=== PATIENT | male | born 1965 | race African-American/Black ===

== ENCOUNTER 2022-06-15 16:57 | Emergency (ER) | payer OTHER ==
--- NOTE | 2022-06-15 16:59 | ED ---
General Adult HPI <Alejandra Mancia - Last Filed: 06/15/22 16:59> <Kavita Lopez - Last Filed: 06/15/22 23:38> - General Stated complaint: High blood pressure Time Seen by Provider: 06/15/22 16:59 - History of Present Illness Initial comments: 56-year-old -[place] male presents to the emergency department via EMS with a chief complaint of hypertension. (Alejandra Mancia) Patient is a 56-year-old male presenting for evaluation of hypertension. Patient is currently at [facility], he was noted to have elevated blood pressure even after taking his antihypertensives today. Patient denies any ches t pain, difficulty breathing, headache, vision or hearing changes, abdominal pain, nausea, vomiting, numbness, tingling, weakness, lower extremity swelling. Patient does admit to some URI-like symptoms. (Kavita Lopez) - Related Data Home Medications Medication Instructions Recorded Confirmed Calcium, Magnesium, Zinc, With D3 1 tab PO DAILY 06/15/22 06/15/22 Metoprolol Tartrate [Lopressor] 100 mg PO DAILY 06/15/22 06/15/22 Nicotine 7Mg/24Hr Patch [Habitrol] 1 patch TRANSDERM DAILY 06/15/22 06/15/22 Thiamine [Vitamin B-1] 100 mg PO DAILY 06/15/22 06/15/22 cloNIDine HCL [Catapres] 0.1 - 0.3 mg PO Q4H PRN 06/15/22 06/15/22 hydroCHLOROthiazide [Hydrodiuril] 25 mg PO DAILY 06/15/22 06/15/22 lisinopriL 40 mg PO DAILY 06/15/22 06/15/22 Allergies Allergy/AdvReac Type Severity Reaction Status Date / Time No Known Allergies Allergy Verified 06/15/22 21:01 Review of Systems ROS Other: All systems not noted in ROS Statement are negative. <Alejandra Mancia - Last Filed: 06/15/22 16:59> ROS Other: All systems not noted in ROS Statement are negative. <Kavita Lopez - Last Filed: 06/15/22 23:38> ROS Statement: Those systems with pertinent positive or pertinent negative responses have been documented in the HPI. General Exam <Alejandra Mancia - Last Filed: 06/15/22 16:59> Limitations: no limitations General appearance: alert, in no apparent distress Head exam: Present: atraumatic, normocephalic, normal inspection Eye exam: Present: normal appearance, EOMI. Absent: periorbital swelling Neck exam: Present: normal inspection, full ROM Respiratory exam: Present: normal lung sounds bilaterally. Absent: respiratory distress, wheezes, rales, rhonchi, stridor Cardiovascular Exam: Present: regular rate, normal rhythm, normal heart sounds. Absent: systolic murmur, diastolic murmur, rubs, gallop, clicks Neurological exam: Present: alert, oriented X3, CN II-XII intact Psychiatric exam: Present: normal affect, normal mood Skin exam: Present: warm, dry, intact, normal color. Absent: rash <Kavita Lopez - Last Filed: 06/15/22 23:38> - General Exam Comments Initial Comments: Visual Physical Exam Vital signs reviewed General: Well-appearing, nontoxic, no acute distress. Head: Normocephalic, atraumatic Eyes: PERRLA, EOMI ENT: Airway patent Chest: Nonlabored breathing Skin: No visual rash, normal skin tone Neuro: Alert and oriented 3 Musculoskeletal: No gross abnormalities (Alejandra Mancia) Course Vital Signs 06/15/22 06/15/22 06/15/22 17:08 20:00 20:10 Temperature 98.5 F Pulse Rate 71 68 80 Respiratory 18 16 16 Rate Blood Pressure 179/110 194/99 157/81 O2 Sat by Pulse 99 98 99 Oximetry 06/15/22 21:21 Temperature 98.1 F Pulse Rate 79 Respiratory 16 Rate Blood Pressure 152/90 O2 Sat by Pulse 98 Oximetry EKG Findings - EKG Comments: EKG Findings:: Sinus rhythm ventricular rate 68. DC interval 184. QRS 82. QT 379. QTC 396. Left ventricular hypertrophy noted. <Kavita Lopez - Last Filed: 06/15/22 23:38> Medical Decision Making - Lab Data Result diagrams: 06/15/22 18:24 06/15/22 18:24 <Kavita Lopez - Last Filed: 06/15/22 23:38> - Medical Decision Making Was pt. sent in by a medical professional or institution (, PA, [employer], urgent care, hospital, or custodial...) When possible be specific @ -No Did you speak to anyone other than the patient for history (EMS, parent, family, police, friend...)? What history was obtained from this source @ -No Did you review nursing and triage notes (agree or disagree)? Why? @ -I reviewed and agree with nursing and triage notes Were old charts reviewed (outside hosp., previous admission, EMS record, old EKG, old radiological studies, urgent care reports/EKG's, custodial records)? Report findings @ -No old charts were reviewed Differential Diagnosis (chest pain, altered mental status, abdominal pain women, abdominal pain men, vaginal bleeding, weakness, fever, dyspnea, syncope, headache, dizziness, GI bleed, back pain, seizure, CVA, palpatations, mental health, musculoskeletal)? @ -not applicable EKG interpreted by me (3pts min.). @ -As above X-rays interpreted by me (1pt min.). @ -Chest x-ray shows no acute process CT interpreted by me (1pt min.). @ -None done U/S interpreted by me (1pt. min.). @ -None done What testing was considered but not performed or refused? (CT, X-rays, U/S, labs)? Why? @ -None What meds were considered but not given or refused? Why? @ -None Did you discuss the management of the patient with other professionals (professionals i.e. , PA, [employer], lab, RT, psych nurse, social service worker, salvage winder and inspector, teacher, code enforcement officer, disease case manager)? Give summary @ -No Was smoking cessation discussed for >3mins.? @ -No Was critical care preformed (if so, how long)? @ -No Were there social determinants of health that impacted care today? How? (Homelessness, low income, unemployed, alcoholism, drug addiction, trans portation, low edu. Level, literacy, decrease access to med. care, alf, rehab)? @ -No Was there de-escalation of care discussed even if they declined (Discuss DNR or withdrawal of care, Hospice)? DNR status @ -No What co-morbidities impacted this encounter? (DM, HTN, Smoking, COPD, CAD, Cancer, CVA, ARF, Chemo, Hep., AIDS, mental health diagnosis, sleep apnea, morbid obesity)? @ -None Was patient admitted / discharged? Hospital course, mention meds given and route, prescriptions, significant lab abnormalities, going to OR and other pertinent info. @ -Patient is a 56-year-old male presenting for asymptomatic hypertension from [facility]. He admits to taking his blood pressure medication today. Physical examination is unremarkable. Patient is given one dose of hydralazine, on reassessment blood pressure has improved. Lab work requires no action. EKG shows no acute process and chest x-rays negative. Patient is instructed to continue taking his pressure medication and following up with his PCP. Follow-up with PCP. Report back to ER with any new or worsening symptoms. Discussed return parameters and answered all questions. Patient conveyed verbal understanding and agreed to the plan. I discussed this case in detail with my attending Dr. Chakraborty Undiagnosed new problem with uncertain prognosis? @ -No Drug Therapy requiring intensive monitoring for toxicity (Heparin, Nitro, Insulin, Cardizem)? @ -No Were any procedures done? @ -No Diagnosis/symptom? @ -Hypertension Acute, or Chronic, or Acute on Chronic? @ -Acute Uncomplicated (without systemic symptoms) or Complicated (systemic symptoms)? @ -Uncomplicated Side effects of treatment? @ -No Exacerbation, Progression, or Severe Exacerbation? @ -No Poses a threat to life or bodily function? How? (Chest pain, USA, SC, pneumonia, PE, COPD, DKA, ARF, appy, cholecystitis, CVA, Diverticulitis, Homicidal, Suicidal, threat to staff... and all critical care pts) @ -No (Kavita Lopez) - Lab Data Lab Results 06/15/22 06/15/22 06/15/22 Range/Units 18:24 18:24 18:24 WBC 11.9 H (3.8-10.6) k/uL RBC 5.02 (4.30-5.90) m/uL Hgb 14.3 (13.0-17.5) gm/dL Hct 45.7 (39.0-53.0) % MCV 91.2 (80.0-100.0) fL MCH 28.5 (25.0-35.0) pg MCHC 31.3 (31.0-37.0) g/dL RDW 13.2 (11.5-15.5) % Plt Count 281 (150-450) k/uL MPV 7.0 Neutrophils % 75 % Lymphocytes % 14 % Monocytes % 6 % Eosinophils % 2 % Basophils % 1 % Neutrophils # 8.9 H (1.3-7.7) k/uL Lymphocytes # 1.7 (1.0-4.8) k/uL Monocytes # 0.7 (0-1.0) k/uL Eosinophils # 0.3 (0-0.7) k/uL Basophils # 0.1 (0-0.2) k/uL Sodium 136 L (137-145) mmol/L Potassium 5.2 H (3.5-5.1) mmol/L Chloride 102 (98-107) mmol/L Carbon Dioxide 28 (22-30) mmol/L Anion Gap 6 mmol/L BUN 14 (9-20) mg/dL Creatinine 1.05 (0.66-1.25) mg/dL Est GFR (CKD-EPI)AfAm >90 (>60 ml/min/1.73 sqM) Est GFR (CKD-EPI)NonAf 78 (>60 ml/min/1.73 sqM) Glucose 111 H (74-99) mg/dL Calcium 9.7 (8.4-10.2) mg/dL Troponin I <0.012 (0.000-0.034) ng/mL Disposition <Alejandra Mancia - Last Filed: 06/15/22 16:59> Is patient prescribed a controlled substance at d/c from ED?: No Time of Disposition: 21:10 <Kavita Lopez - Last Filed: 06/15/22 23:38> Clinical Impression: Hypertension Disposition: HOME SELF-CARE Condition: Good Instructions (If sedation given, give patient instructions): Hypertension (ED) Additional Instructions: Follow-up with PCP. Report back to ER with any new or worsening symptoms. Referrals: None,Stated [REFERRING] - 1-2 days
--- NOTE | 2022-06-15 17:53 | XR ---
EXAMINATION TYPE: XR chest 2V DATE OF EXAM: 06/15/2022 COMPARISON: None INDICATION: Hypertension TECHNIQUE: Frontal and lateral views of the chest are obtained. FINDINGS: The heart size is normal. The pulmonary vasculature is normal. The lungs are clear. IMPRESSION: 1. No acute pulmonary process.
[2022-06-15 18:32] LABS: Basophils # (A) 0.1 k/uL (0-0.2); Basophils % (A) 1 %; Eosinophils # (A) 0.3 k/uL (0-0.7); Eosinophils % (A) 2 %; HCT 45.7 % (39.0-53.0); HGB 14.3 gm/dL (13.0-17.5); Lymphocytes # (A) 1.7 k/uL (1.0-4.8); Lymphocytes % (A) 14 %; MCH 28.5 pg (25.0-35.0); MCHC 31.3 g/dL (31.0-37.0); MCV 91.2 fL (80.0-100.0); Monocytes # (A) 0.7 k/uL (0-1.0); Monocytes % (A) 6 %; Neutrophils # (A) 8.9 k/uL (1.3-7.7); Neutrophils % (A) 75 %; Platelet Count 281 k/uL (150-450); RBC 5.02 m/uL (4.30-5.90); RDW 13.2 % (11.5-15.5); WBC 11.9 k/uL (3.8-10.6)
[2022-06-15 18:57] LABS: African American GFR (CKD) >90 (>60 ml/min/1.73 sqM); Anion Gap 6 mmol/L; Blood Urea Nitrogen 14 mg/dL (9-20); Calcium 9.7 mg/dL (8.4-10.2); Carbon Dioxide 28 mmol/L (22-30); Chloride 102 mmol/L (98-107); Glucose 111 mg/dL (74-99); Non-African American GFR(CKD) 78 (>60 ml/min/1.73 sqM); Potassium 5.2 mmol/L (3.5-5.1); Sodium 136 mmol/L (137-145)
[2022-06-15] MEDS ORDERED: hydrALAZINE HCL 20 MG/ML 1 ML VIAL IVP STA (19:53)
[2022-06-15 20:17] VITALS: RESP 16
[2022-06-15 21:22] VITALS: BP 152/90; PULSE 79; TEMP 98.1
== END 2022-06-15 21:22 | disposition home or self-care (01) ==
LOC: EC 16:57
DX: I10 Essential (primary) hypertension (principal); Z79.899 Other long term (current) drug therapy
CPT/HCPCS: 36415; 93005; 80048; 84484; 85025; 71046; 99284; 96374; J0360